=== PATIENT | male | born 1985 | race Caucasian/White ===

== ENCOUNTER 2023-07-07 10:46 | Emergency (ER) | payer BC, SELFPAY ==
[2023-07-07] VITALS (12 sets, daily range): BP systolic 117–152; BP diastolic 62–87; PULSE 66–98; RESP 13–22; TEMP 36.1; O2SAT 97–100
--- NOTE | ~2023-07-07 | CT_ITS ---
Non-contrast Head CT History: Syncope Technique: Axial non-contrast imaging of the brain was performed. Dose reduction technique was used on this scan by utilizing automated exposure control and iterative reconstruction technique. The dose -length product (DLP) was 681.00 mGy-cm. Findings: There is no evidence of intracranial hemorrhage, mass lesion, or acute infarct. Brain par enchyma appears normal. The ventricles and subarachnoid spaces are normal in size. The calvarium ap pears normal. There is mild right maxillary and bilateral ethmoid sinus disease. The remaining visual ized paranasal sinuses and mastoid air cells are clear. Impression: No intracranial abnormality seen. Mild sinus disease, as above. Reviewed, dictated and finalized at location . Impression: No intracranial abnormality seen. Mild sinus disease, as above.
--- NOTE | ~2023-07-07 | CT_ITS ---
Noncontrast CT scan of the cervical spine Technique: Multiple contiguous axial [address] images of the cervical spine were obtained and rec onstructed in 2D sagittal and coronal planes on the acquisition scanner. Dose reduction technique was used on this scan by utilizing automated exposure control, adjustment of the mA and/or kV according to patient size. The dose-length product (DLP) was 598.30 mGy-cm. Clinical History: Pain Findings: No fractures or dislocations. Unremarkable visualized bony structures. The intervertebral disc spaces are preserved. No prevertebral soft tissue swelling. Impression: No fracture or subluxation of the cervical spine. Reviewed, dictated and finalized at location . Impression: No fracture or subluxation of the cervical spine.
--- NOTE | ~2023-07-07 | XR_ITS ---
Clinical Indication: Burning sensation PA and lateral views of the chest: Comparison: None Findings: The lungs are clear, without evidence of focal consolidation or pleural effusion. Cardiome diastinal silhouette is within normal limits. Bones and soft tissues are unremarkable. Impression: Normal chest. Reviewed, dictated and finalized at location . Impression: Normal chest.
--- NOTE | 2023-07-07 11:22 | ECG_ITS ---
Measurements Intervals [place] Rate: 66 P: 47 KS: 173 QRS: 41 QRSD: 96 T: 27 QT: 379 QTc: 397 Interpretive Statements SINUS RHYTHM WITHIN NORMAL LIMITS NO PREVIOUS ECG AVAILABLE FOR COMPARISON Electronically Signed On 07-07-2023 13:14:33 CDT by Liu Powers M.D.
[2023-07-07 11:50] LABS: Basophils Absolute Auto 0.1 K/mm3 (0.0-0.1); Basophils Percent Auto 0.4 % (0.2-1.2); Eosinophils Absolute Auto 0.2 K/mm3 (0-0.3); Eosinophils Percent Auto 1.3 % (0-4.4); Hematocrit 51.3 % (42.0-52.0); Hemoglobin 17.1 g/dL (14.0-18.0); Immature Granulocyte Absolute 0.05 K/mm3 (0.00-0.031); Immature Granulocyte Percent A 0.4 % (0-0.5); Lymphocytes Absolute Auto 1.51 K/mm3 (0.9-3.2); Lymphocytes Percent Auto 13.6 % (18.3-44.2); Mean Corpuscular HGB Conc 33.3 g/dl (32-36); Mean Corpuscular Hemoglobin 29.3 pg (26-34); Mean Platelet Volume 9.7 fl (7.4-10.4); Monocytes Absolute Auto 0.8 K/mm3 (0.1-0.6); Monocytes Percent Auto 7.1 % (2.6-8.5); Neutrophils Absolute Auto 8.6 K/mm3 (1.3-6.7); Neutrophils Percent Auto 77.2 % (45.5-73.1); Platelet Count Result 271 k/mm3 (150-375); Red Blood Count 5.83 M/mm3 (4.6-6.20); White Blood Count 11.1 K/mm3 (4.5-10.0)
[2023-07-07 12:01] LABS: Alanine Aminotransferase 39 U/L (6-50); Alkaline Phosphatase 55 U/L (38-126); Anion Gap 4 mmol/L (4-12); Aspartate Amino Transferase 36 U/L (17-59); Bilirubin,Total 0.4 mg/dL (0.2-1.3); Blood Urea Nitrogen 18 mg/dL (9-20); Calcium 9.3 mg/dL (8.4-10.2); Carbon Dioxide 31 mmol/L (22-30); Chloride 103 mmol/L (98-107); Estimated CRCL calculation 82 ml/min; Estimated Glomerular Filt Rate > 60; Glucose 111 mg/dL (65-110); Potassium 3.6 mmol/L (3.4-5.0); Sodium 138 mmol/L (137-145)
[2023-07-07 12:11] LABS: Troponin I < 0.012 ng/mL (0.000-0.034)
--- NOTE | 2023-07-07 13:00 | ED.GENADULT ---
HPI - General Adult General Chief complaint: Unspecified <ADELINA Paredes Last Filed: 07/07/23 13:16> Stated complaint: doesn't feel well <ADELIAN Paredes Last Filed: 07/07/23 13:16> Time Seen by Provider: 07/07/23 13:03 <ADELINA Paredes Last Filed: 07/07/23 13:16> Focused HPI: Patient is a 38 y/o male who presents to the ED with multiple complaints. Patient reports he woke up this morning not feeling well. C/o dizziness, WASHBURN, fatigue, generalized weakness, phlegm and burning in his chest. States he was standing up next to a friend and began feeling increasingly dizzy. Then had a witnessed syncopal episode. Hit his head on a stair railing. Unsure how long he was unconscious for. He then prompted here. Patient still feels fatigued currently with some mild burning in his chest. Patient also reports having swelling in his bilateral hands and a sore throat for the past few days. Denies fevers, focal weakness/numbness, cough, SOB. Patient has hx of methamphetamine use. Last smoked last night. Denies IVDA. GENERAL: Fatigued-appearing, well-nourished, and in no acute distress. HEAD: Normocephalic, atraumatic. CHEST: Clear to auscultation. ?No respiratory distress. HEART: Regular rate and rhythm.? NEURO: ?Alert and oriented x3. Patient screened in triage and initial orders placed.? ?Additional care and disposition to be based upon?diagnostic testing and treatment. <ADELINA Paredes Last Filed: 07/07/23 13:16> Source: patient <ADELINA Paredes Last Filed: 07/07/23 13:16> Mode of arrival: wheelchair <ADELINA Paredes Last Filed: 07/07/23 13:16> Limitations: no limitations <ADELINA Paredes Last Filed: 07/07/23 13:16> History of Present Illness HPI narrative: 38-year-old otherwise healthy here with the complaints of feeling dizzy, had some chest discomfort associated with some nausea and vomiting. Patient states that he used ICE last night. No previous history CAD. <Anil Greer MD - Last Filed: 07/07/23 16:53> Onset (ago): hour(s) (4) <Anil Greer MD - Last Filed: 07/07/23 16:53> Severity: moderate <Anil Greer MD - Last Filed: 07/07/23 16:53> Pain Consistency: now resolved <Anil Greer MD - Last Filed: 07/07/23 16:53> Relieving factors: none <Anil Greer MD - Last Filed: 07/07/23 16:53> Exacerbating factors: none <Anil Greer MD - Last Filed: 07/07/23 16:53> Associated symptoms: nausea/vomiting <Anil Greer MD - Last Filed: 07/07/23 16:53> Treatments prior to arrival: none <Anil Greer MD - Last Filed: 07/07/23 16:53> Related Data Allergies/adverse reactions: Allergies Allergy/AdvReac Type Severity Reaction Status Date / Time No Known Allergies Allergy Verified 07/07/23 13:42 <Micaela Piper PA-C - Last Filed: 07/07/23 13:16> Review of Systems Review of Systems: All systems reviewed & are unremarkable except as noted in HPI and below <Anil Greer MD - Last Filed: 07/07/23 16:53> Constitutional: Constitutional: Reports no additional constitutional complaints <Anil Greer MD - Last Filed: 07/07/23 16:53> Eyes: Eyes: Reports no additional eye complaints <Anil Greer MD - Last Filed: 07/07/23 16:53> ENT: Reports system reviewed and no additional complaints, except as documented <Anil Greer MD - Last Filed: 07/07/23 16:53> Cardiovascular: Cardiovascular: Reports as per HPI <Anil Greer MD - Last Filed: 07/07/23 16:53> Respiratory: Respiratory: Reports no additional respiratory complaints <Anil Greer MD - Last Filed: 07/07/23 16:53> Gastrointestinal: Gastrointestinal: Reports no additional gastrointestinal complaints <Anil rGeer MD - Last Filed: 07/07/23 16:53> Musculoskeletal: Musculoskeletal: Reports no additional musculoskeletal complaints <Anil Greer MD - [place]
[2023-07-07] MEDS: BELLADONNA ALK/PHENOB ELIX 10 ML, MAG HYDROX/ALUMINUM HYD/SIMETH 30 ML, LIDOCAINE HCL 2... PO (13:20)
[2023-07-07 13:36] LABS: Creatine Kinase 449 U/L (55-170)
[2023-07-07] MEDS: SODIUM CHLORIDE 0.9% IV 1,000 ML 999 ML IV CONT (13:43)
[2023-07-07 13:48] LABS: NT Pro B Type Natriuretic Pept < 20 pg/mL (19.9-100)
[2023-07-07 14:04] LABS: Influenza A QL RT-PCR Negative (Negative); Influenza B QL RT-PCR Negative (Negative); RSV RNA, RT-PCR Negative (Negative); SARS-CoV-2 RNA PCR Negative (Negative)
--- NOTE | 2023-07-07 14:52 | ECG_ITS ---
Measurements Intervals [place] Rate: 63 P: 35 AL: 167 QRS: 50 QRSD: 94 T: 42 QT: 374 QTc: 383 Interpretive Statements SINUS RHYTHM COMPARED TO ECG 07/07/2023 11:25:28 NO SIGNIFICANT CHANGES Electronically Signed On 07-08-2023 8:44:15 CDT by Simon Lopez M.D.
[2023-07-07 15:07] LABS: Appearance Urine Cloudy (Clear); Bacteria Urine None Seen /hpf; Bilirubin Urine Negative (Negative); Blood Urine Trace (Negative); Color Urine Yellow (Yellow); Glucose Urine UA Negative (Negative); Ketones Urine Negative (Negative); Leukocyte Esterase Ur Negative LEU/UL (Negative); Nitrate Urine Negative (Negative); Non Pathogenic Casts 0-2; Protein Urine Negative (Negative); Squamous Epithelial Cell Urine None Seen /hpf (Few); WBC Urine 0-5 /hpf (0-3)
[2023-07-07 15:09] LABS: Add Urine Microscopic? YES
[2023-07-07 15:19] LABS: Barbiturate Screen Urine Negative (Negative); Benzodiazepines Screen Urine Negative (Negative)
[2023-07-07 15:32] LABS: Troponin I < 0.012 ng/mL (0.000-0.034)
[2023-07-07 15:38] LABS: Cannabinoid Screen Urine Negative (Negative); Cocaine Screen Urine Negative (Negative); Methadone Screen Urine Negative (Negative); Opiate Screen Urine Negative (Negative); Phencyclidine Screen Urine Negative (Negative)
[2023-07-07 16:06] LABS: Amphetamine Screen Urine Positive (Negative)
== END 2023-07-07 17:17 | disposition home or self-care (01) ==
LOC: ANHED 17:08
PROVIDERS: Physician Assistant; Emergency Provider Family Medicine; Referring Provider Family Medicine
DX: R07.9 Chest pain, unspecified (principal); F15.10 Other stimulant abuse, uncomplicated; Z20.822 Contact with and (suspected) exposure to COVID-19; J32.9 Chronic sinusitis, unspecified
CPT/HCPCS: 36415; 70450; 71046; 72125; 80053; 80307; 81001; 82550; 83880; 84484; 85025; 87637; 93005; 96360; 96361; 99284; J7030